=== PATIENT | male | born 1935 | race Caucasian/White ===

== ENCOUNTER 2020-05-03 15:30 | Inpatient (IN) | payer MEDICARE ==
[2020-05-03 16:50] VITALS: BP 173/52; BMI 25.7
--- NOTE | 2020-05-03 17:08 | NUR ---
PT WAS SITTING IN W/C STOOD UP QUICKLY AND STUMBLING FALLING TO THE FLOOR. 2X ASSISTED PT INTO W/C. PT DENIED ANY INJURIES. FALL WAS WITNESSED. CT ORDER AND NEURO CHECKS. SYLVIA QUINONEZ NOTIFIED OF FALL. NOTIFIED LUIS ARITA OF FALL. NOTIFIED COMMUNITY HEALTH NAVIGATOR. CHAIR ALARM IN PLACE AND NOW ACTIVE.
[2020-05-03] MEDS ORDERED: DONEPEZIL HCL5 MG PO (17:32)
[2020-05-03] MEDS ORDERED: LIPITOR10 MG PO (17:43)
[2020-05-03] MEDS ORDERED: GLIPIZIDE10 MG (17:44)
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
--- NOTE | 2020-05-03 19:50 | NUR ---
RECEIVED PATIENT IN DAYROOM. SITTING QUIETLY TO HIMSELF, CONFUSED, FLAT AFFECT. NOT SAYING MUCH WHEN SPOKEN TO. WILL MONITOR PATIENT AND FOLLOW NEW POC
[2020-05-03 20:00] VITALS: BP 119/56
[2020-05-04 08:11] LABS: CHOL - HDL RATIO 2.6 ratio (2.3-4.9); LDL-HDL RATIO 1.3 ratio (1.5-3.5); THYROID STIMULATING HORMONE 2.74 uIU/mL (0.36-3.74)
--- NOTE | 2020-05-04 08:15 | NUR ---
The patient is calm and pleasant he is sitting in the hallway, he is watchful. He remains depressed. He is unhappy about being here. He says he would prefer to just get it all over with. Provide prescribed meds. Monitor compliance with meds. He is in a w/c and self propels, he has an alarm on as he fell yesterday. Continue POC.
[2020-05-04 10:10] VITALS: BP 180/73
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
[2020-05-04 15:06] VITALS: Wt 86.4 kg
[2020-05-04 20:42] VITALS: BP 117/55
--- NOTE | 2020-05-04 20:59 | NUR ---
RECEIVED PATIENT IN DAYROOM, STILL DROWSY, QUIET, FLAT, REMINDING PATIENT TO USE CALL ALARCON FOR ASSISTANCE OF ANY KIND. COMPLIANT WITH MEDS. BED ALARM ON. WILL MONITOR THROUGHOUT SHIFT.
[2020-05-05 09:48] VITALS: BP 129/66
--- NOTE | 2020-05-05 12:46 | NUR ---
PT IS AWAKE AND ALERT TO PERSON ONLY. CALM AND COOPERATIVE WITH ASSESSMENT. PRESCRIBED MEDS PROVIDED. MED COMPLIANT. PT DENIES SI AT THIS TIME. PT IS VERY QUIET AND KEEPS TO HIS SELF. FALL PRECAUTIONS IN PLACE. WILL CPOC.
[2020-05-05 21:08] VITALS: BP 162/53; BP 189/75
--- NOTE | 2020-05-05 22:32 | NUR ---
RECEIVED IN DAYROOM. SITTING IN A WHEELCHAIR WITH PEERS AT HIS SIDE. CALM AND COOPERATIVE WITH CARE AND ASSESSMENT. NO SIGNS OF AGGRESSION. REDIRECT AND REORIENT NEEDED. RESTING IN BED WITH EYES CLOSED AT THIS TIME. CONTINUE PLAN OF CARE.
[2020-05-06 08:37] VITALS: BP 151/52
--- NOTE | 2020-05-06 12:00 | NUR ---
RECEIVED IN HALLWAY OUTSIDE OF NURSES STATION. CALM AND COOPERATIVE WITH CARE AND ASSESSMENT. NO AGGRESSION. REDIRECT AND REORIENT NEEDED. EATING AT THIS TIME. CONTINUE PLAN OF CARE.
[2020-05-06 20:06] VITALS: BP 111/54
--- NOTE | 2020-05-06 21:44 | NUR ---
RECEIVED IN DAYROOM. SITTING IN A WHEELCHAIR WITH PEERS AT HIS SIDE. CALM AND COOPERTIVE WITH CARE AND ASSESSMENT. NO SIGNS OF AGGRESSION. REDIRECT AND REORIENT NEEDED. RESTING IN BED WITH EYES CLOSED AT THIS TIME. CONTINUE PLAN OF CARE.
[2020-05-07 03:07] LABS: RAPID PLASMA REAGIN Non Reactive (Non Reactive)
[2020-05-07 09:05] VITALS: BP 145/52
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
--- NOTE | 2020-05-07 12:00 | NUR ---
RECEIVED IN HALLWAY OUTSIDE OF NURSES STATION. CALM AND COOPERATIVE WITH CARE AND ASSESSMENT. NO AGGRESSIVE BEHAVIOR. BUT WHEN ASKED ABOUT HIS SON, EDIE, HE STATES HE WOULD STILL KILL HIM. REDIRECT AND REORIENT NEEDED. EATING AT THIS TIME. CONTINUE PLAN OF CARE.
--- NOTE | 2020-05-07 13:20 | PN ---
PATIENT:MICHAEL ARITA MEDICAL RECORD: [id number] LOCATION:VICENTE Mccarthy ADMISSION DATE: 05/03/20 PROGRESS NOTE DATE OF SERVICE: 05/06/2020 SUBJECTIVE: The patient's case was discussed with staff. He has no new complaint. OBJECTIVE: The patient is in good behavioral control. He has limited insight about his situation. He has not been aggressive. ASSESSMENT: Dementia. PLAN: Current medicines have been reviewed and will be maintained. Long-term prognosis is guarded. TRANSINT:[id number] Voice Confirmation ID: [id number] DOCUMENT ID: [id number] GEOFF BURNHAM MD at 1320 CC: [id number] DICTATION DATE: 05/06/20 1609 INORGANIC CHEMISTRY PROFESSOR: 05/07/20 0013 ADM IN [id number] [place] [address]
[2020-05-07 19:56] VITALS: BP 198/60
--- NOTE | 2020-05-07 22:13 | NUR ---
REECIVED IN DAYROOM. SITTING IN A WHEELCHAIR WITH PEERS AT HIS SIDE. CALM AND COOPERATIVE WITH CARE AND ASSESSMENT. NO SIGNS OF AGGRESSION. REDIRECT AND REORIENT NEEDED. DOES NOT STAY IN BED. ATTEMPTS TO EXIT WITHOUT ASSIST OFTEN. LIILAN ALARM SOUNDING. IN BED EYES OPEN AT THIS TIME. CONTINUE PLANOF CARE.
--- NOTE | 2020-05-08 02:15 | NUR ---
CONTINUES TO GET OUT OF BED. AGITATED AT STAFF WHEN REDIRECTED AND REORIENTED. CONTINUE TO MONITOR FOR SAFETY.
[2020-05-08 09:57] VITALS: BP 120/60
--- NOTE | 2020-05-08 13:53 | NUR ---
Nutrition Follow-up: Eating well. Diet: ADA/AHA PO intake: 100% x 13 meals Wt: 183# (05/05); 189# (05/03) Last BM: 05/04 Labs noted: Glu 103 Meds noted: Jardiance, Humalog, Glucotrol, vitamin B12 -Monitor wt. -RD following.
--- NOTE | 2020-05-08 14:20 | NUR ---
PT SITTING IN CHAIR AT THIS TIME. PT IS ALERT TO SELF ONLY. CONFUSION NOTED. PT IS CALM AND COOPERATIVE WITH STAFF. PT IS COMPLIANT WITH STAFF, MEDS AND VITALS. PT CAN AMBULATE BUT IS VERY UNSTEADY. STAFF MONITORS AND ASSIST WITH TOILETING. PT CAN MAKE NEEDS KNOWN. CHAIR ALARM IN PLACE AND ACTIVE. NO BEHAVIORS NOTED AT THIS TIME. WILL CONT PLAN OF CARE.
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
[2020-05-08 20:00] VITALS: BP 151/51
--- NOTE | 2020-05-08 22:56 | NUR ---
PATIENT IS ALWAYS AGITATED, COMPLIANT WITH MEDS, CONFUSED, BECOMES ANGRY REALLY QUICKLY. WILL FOLLOW POC
[2020-05-09 10:31] VITALS: BP 134/47
[2020-05-09 10:38] LABS: BASOPHILS 0.5 % (0-2); EOSINOPHILS 1.7 % (0-7); HEMATOCRIT 47.8 % (42.0-54.0); HEMOGLOBIN 16.1 g/dL (13.5-17.5); IMMATURE GRANULOCYTES 0.2 % (0-5); LYMPHOCYTES 24.7 % (15-50); MCH 33.5 pg (26.0-34.0); MCHC 33.7 g/dL (31.0-37.0); MCV 99.4 fL (80.0-100.0); MEAN PLATELET VOLUME 11.5 fL (7.4-10.4); MONOCYTES 9.2 % (2-11); NEUTROPHILS 63.7 % (40-80); PLATELET COUNT 151 10x3/uL (130-400); RBC 4.81 10x6/uL (4.20-6.10); RDW 12.9 % (11.5-14.5); WBC 6.6 10x3/uL (4.8-10.8)
[2020-05-09 10:51] LABS: ALBUMIN 3.5 g/dL (3.4-5.0); ANION GAP 8.6 mmol/L (8-16); BILIRUBIN - TOTAL 0.75 mg/dL (0.2-1.3); CALCIUM 9.2 mg/dL (8.5-10.1); CREATININE - SERUM 1.1 mg/dL (0.6-1.3); POTASSIUM - SERUM 4.6 mmol/L (3.5-5.1); PROTEIN - SERUM 6.2 g/dL (6.4-8.2)
--- NOTE | 2020-05-09 12:17 | PN ---
PATIENT:MICHAEL ARITA MEDICAL RECORD: [id number] LOCATION:VICENTE DamianRigo112 ADMISSION DATE: 05/03/20 PROGRESS NOTE DATE OF SERVICE: 05/08/2020 SUBJECTIVE: The patient's case was discussed with staff. He has no new complaint. OBJECTIVE: The patient denies intent to harm himself or others. He is tolerating his medicines well. ASSESSMENT: Vascular dementia. PLAN: The patient is calm and cooperative, but significantly impaired cognitively. I am going to take him off of the Trilan and we will see if he has a return of the psychotic symptoms he previously had on admission. TRANSINT:[id number] Voice Confirmation ID: [id number] DOCUMENT ID: [id number] GEOFF BURNHAM MD at 1217 CC: [id number] DICTATION DATE: 05/08/20 1553 SOIL ENGINEER: 05/09/20 0046 ADM IN [facility] [address] [place] [address]
--- NOTE | 2020-05-09 15:20 | NUR ---
PT SITTING IN CHAIR WITH EYES OPEN WATCHING T.V. PT IS CALM AND COOPERATIVE WITH STAFF. PT IS COMPLIANT WITH MEDS, VITALS AND ASSESSMENTS. NO ACUTE DISTRESS NOTED. PT CAN AMBULATE AND IS SOMEWHAT UNSTEADY. PT CAN GET SOMEWHAT UPSET WHEN ALARMS GO OFF WHEN STAFF CHECKS ON HIM. PT IS HARD OF HEARING. CHAIR ALARM IN PLACE AND ACTIVE. WILL CONT PLAN OF CARE.
--- NOTE | 2020-05-09 20:00 | NUR ---
RECEIVED PATIENT SITTING IN DAYROOM AT THE TABLE CALMLY, NO AGITATED AT THIS TIME, HE WAS ORIENTED TO SELF AND TIME ONLY. HE HAS BEEN COMPLIANT WITH MEDS. WILL FOLLOW POC
[2020-05-09 20:04] VITALS: BP 166/50
[2020-05-10 09:55] VITALS: BP 144/43
--- NOTE | 2020-05-10 17:17 | NUR ---
PT SITTING IN CHAIR WITH HEAD DOWN. NO ACUTE DISTRESS NOTED. PT CAN BE MILDLY AGITATED WITH CARE. PT IS ALERT TO SELF AND ORIENTED TO SELF ONLY. PT IS COMPLIANT WITH MEDS, VITALS AND ASSESSMENTS. REDIRECT AND REORIENT BEHAVIORS. PT IS UNSTEADY WITH AMBULATION. CHAIR ALARM IN PLACE AND ACTIVE. WILL CONT PLAN OF CARE.
[2020-05-10 20:00] VITALS: BP 149/50
--- NOTE | 2020-05-11 01:42 | NUR ---
B) Patient is alert and oriented to person and place, very [place]; which make it difficult to communicate with him at times, at times this nurse has had to remove his mask and face the patient to be understood. I) Administered scheduled medications as ordered, monitored for safety R) Mediation compliant, follow instructions, P) Continue plan of care.
[2020-05-11 08:24] VITALS: BP 140/51
--- NOTE | 2020-05-11 16:11 | NUR ---
The patient is awake, he is calm, he is confused as he has poor insight into his situation. He wanders around. He has not shown any aggression today and he has not been exit seeking. He has been appropriate with the females and not made any inappropriate remarks or touching. Provide prescribed meds. The patient is compliant with meds. Continue POC.
[2020-05-11 20:02] VITALS: BP 185/63
--- NOTE | 2020-05-11 21:42 | NUR ---
B.) PT IS ALERT AND ORIENTED TO SELF ONLY. HE IS VERY [place]. HE IS USING A WHEELCHAIR TO AMBULATE. HE IS OBSERVED SOCIALIZING WITH PEERS. I.) PROVIDED PM MEDICATIONS PRESCRIBED. REDIRECT OFTEN. R.) COMPLIANT WITH ALL MEDICATIONS. EASY TO REDIRECT. P.) WILL CONTINUE TO MONITOR.
[2020-05-12 13:48] VITALS: BP 160/57
--- NOTE | 2020-05-12 14:53 | NUR ---
ORIENTED TO SELF.COMPLIANT WITH STAFF AND MEDS.NO AGGRESSION OBSERVED.SITS IN WHEELCHAIR AT END OF TABLE MOST OF THE DAY WITH HEAD DOWN ON TABLE.DOES AROUSE EASILY FOR MEDS AND MEALS.WILL CONTINUE WITH CURRENT PLANOF CARE,MONITOR FOR CHANGES AND SAFETY.
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
--- NOTE | 2020-05-12 19:52 | NUR ---
RECEIVED IN DAYROOM. SITTING IN A CHAIR WITH PEERS AT HIS SIDE. CALM AND COOPERATIVE WITH CARE AND ASSESSMENT. NO SIGNS OF AGGRESSION. REDIRECT AND REORIENT NEEDED. CONTINUES TO SIT CALMLY IN DAYROOM. CONTINUE PLAN OF CARE.
[2020-05-12 20:24] VITALS: BP 165/60
[2020-05-13 08:41] VITALS: BP 147/88
--- NOTE | 2020-05-13 13:51 | NUR ---
PT IS AWAKE AND ALERT TO PERSON ONLY. CALM AND COOPERATIVE WITH ASSESSMENT AT THIS TIME. PT HAS LITTLE INSIGHT INTO SITUATION. PRESCRIBED MEDS PROVIDED ORDERED. MED COMPLIANT. REDIRECT AND REORIENT NEEDED. FALL PRECAUTIONS IN PLACE. WILL CPOC.
[2020-05-13 20:10] VITALS: BP 142/33
--- NOTE | 2020-05-13 21:33 | NUR ---
RECEIVED IN DAYROOM. SITTING IN A CHAIR WITH PEERS AT HIS SIDE. JENNYFER ALFARO COOPERATIVE WITH CARE AND ASSESSMENT. NO SIGNS OF AGGRESSION. REDIRECT AND REOREINT NEEDED. RESTING IN BED WITH EYES CLOSED AT THIS TIME. CONTINUE PLAN OF CARE.
[2020-05-14 11:40] VITALS: BP 128/52
--- NOTE | 2020-05-14 11:58 | NUR ---
RECEIVED IN HALLWAY OUTSIDE OF NURSES STATION. CALM AND COOPERATIVE WITH CARE AND ASSESSMENT. NO AGGRESSION. DENIES SUICIDAL IDEATION. REDIRECT AND REORIENT NEEDED. EATING AT THIS TIME. CONTINUE PLAN OF CARE.
[2020-05-14 20:16] LABS: GLUCOSE 1000 mg/dL (NEGATIVE); KETONE NEGATIVE (NEGATIVE); NITRITE NEGATIVE (NEGATIVE); UROBILINOGEN NORMAL (NORMAL)
[2020-05-14 20:17] LABS: BILIRUBIN NEGATIVE (NEGATIVE)
[2020-05-14 20:53] VITALS: BP 127/52
--- NOTE | 2020-05-14 22:17 | NUR ---
RECEIVED IN DAYROOM. SITTING IN A CHAIR WITH PEERS AT HIS SIDE. CALM AND COOPERATIVE WITH CARE AND ASSESSMENT. NO SIGNS OF AGGRESSION. REDIRECT AND REOREINT NEEDED. RESTING IN BED WITH EYES CL0SED AT THIS TIME. CONTINUE PLAN OF CARE.
[2020-05-15 09:19] VITALS: BP 129/58
--- NOTE | 2020-05-15 14:03 | NUR ---
Nutrition Follow-up: Diet: Cardiac, Diabetic PO intake: 100% x all meals Last BM: 05/11/20. WT: 184.4# (05/12/20); Admit WT: 189# (05/03/20) Meds noted: miralax, SSI, glipizide. Labs noted: POC Glu 77(WNL) Recommend continue current diet. RD following.
--- NOTE | 2020-05-15 14:43 | NUR ---
PT CALM AND COOPERATIVE WITH ASSESSMENT. PT APPEARS SLEEPY THIS MORNING. NO BEHAVIORS NOTED AT THIS TIME. REDIRECT AND REORIENT NEEDED. PRESCRIBED MEDS PROVIDED ORDERED. MED COMPLIANT. FALL PRECAUTIONS IN PLACE. WILL CPOC.
[2020-05-15 20:03] VITALS: BP 145/44
--- NOTE | 2020-05-16 00:25 | NUR ---
B.) PT IS ALERT AND ORIENTED TO SELF ONLY. HE IS ABLE TO AMBULATE BUT IS VERY UNSTEADY. HE IS HARD OF HEARING. HE IS CALM AND COOPERATIVE WITH STAFF. HE IS TIRED TODAY. I.) PROVIDED PM MEDICATIONS PRESCRIBED. REDIRECT OFTEN. R.) COMPLIANT WITH ALL MEDICATIONS. EASY TO REDIRECT. P.) WILL CONTINUE TO MONITOR.
[2020-05-16 09:36] VITALS: BP 111/43
--- NOTE | 2020-05-16 14:33 | NUR ---
PT SITTING IN W/C PROPELLS SELF IN CHAIR. PT IS CONFUSED AND FORGETFUL. STAFF OFTEN HAS TO REMIND HIM TO USE HIS W/C TO PREVENT FALLS. PT IS TENDS TO ISOLATE SELF WITH HEAD ON TABLE. PT CAN BE SNIPPY AT TIMES. REDIRECT BEHAVIORS NEEDED. PT IS COMPLIANT WITH MEDS, VITALS AND ASSESSMENTS. NO BEHAVIORS NOTED PREVIOUS SHIFT. CAN MAKE NEEDS KNOWN. CHAIR ALARM IN PLACE AND ACTIVE. WILL CONT PLAN OF CARE.
[2020-05-16 20:19] VITALS: BP 120/45
--- NOTE | 2020-05-16 22:26 | NUR ---
RECEIVED PATIENT IN DAYROOM, SITTING AT THE END OF THE TABLE WITH HIS HEAD ON THE TABLE, HE IS USUALLY IN A BAD MOOD, DOESN'T LIKE FOR PEOPLE TO TALK TO HIM, AND THIS IS HIS MOOD THIS EVENING. HE IS CONFUSED, HE IS COMPLIANT WITH MEDS. WILL FOLLOW POC
[2020-05-17 14:10] VITALS: BP 125/41
--- NOTE | 2020-05-17 14:20 | NUR ---
PT SITTING IN W/C WITH HEAD DOWN. PT DOES NOT LIKE TO INTERACT WITH STAFF DURING GROUPS. PT IS COOPERATIVE WITH STAFF AND PEERS. PT CAN AMBULATE BUT IS VERY UNSTEADY. PT IN W/C WITH CHAIR ALARM IN PLACE. PT IS COMPLIANT WITH MEDS, VITALS AND ASSESSMENTS. CONFUSION NOTED. PT CAN BE GRUMPY WHEN STAFF ATTEMPTS TO GIVE CARE. REDIRECT BEHAVIOR. CHAIR ALARM IN PLACE AND ACTIVE. WILL CONT PLAN OF CARE.
[2020-05-17 20:08] VITALS: BP 145/79
--- NOTE | 2020-05-18 04:17 | NUR ---
RECEIVED IN DAYROOM WITH HIS HEAD ON TABLE. CALM AND COOPERATIVE WITH CARE AND ASSESSMENT. REDIRECT AND REORIENT NEEDED. MEDICATION COMPLIANT. CONTINUE PLAN OF CARE.
[2020-05-18 09:54] VITALS: BP 107/43
--- NOTE | 2020-05-18 10:18 | NUR ---
The patient is quiet and calm, he wakes up to eat, drink, and toilet. He is depressed. He just lays his head down on the table all day long. he doesn't interact with staff or peers. Provide prescribed meds. The patient is compliant with meds. He can self propel in a w/c and he can walk with assist as he is unsteady. He has not shown any aggression this am. Continue to monitor his behavior and POC.
[2020-05-18 11:55] LABS: HEMATOCRIT 45.5 % (42.0-54.0); HEMOGLOBIN 15.4 g/dL (13.5-17.5); MCH 32.8 pg (26.0-34.0); MCHC 33.8 g/dL (31.0-37.0); MCV 96.8 fL (80.0-100.0); NEUTROPHILS 65.2 % (40-80); PLATELET COUNT 141 10x3/uL (130-400); RDW 12.8 % (11.5-14.5)
[2020-05-18 12:27] LABS: ALBUMIN 3.2 g/dL (3.4-5.0); ANION GAP 8.6 mmol/L (8-16); BILIRUBIN - TOTAL 0.47 mg/dL (0.2-1.3); CARBON DIOXIDE 30.2 mmol/L (21.0-32.0); CREATININE - SERUM 1.3 mg/dL (0.6-1.3); POTASSIUM - SERUM 4.8 mmol/L (3.5-5.1); PROTEIN - SERUM 6.2 g/dL (6.4-8.2)
[2020-05-18 20:00] VITALS: BP 142/88
--- NOTE | 2020-05-19 08:45 | NUR ---
REC'D PT IN DINING ROOM WITH PEERS. CALM AND COOPERATIVE WITH ASSESSMENT. PT IS CALM AND SLEEPY AT TIMES. PT APPEARS TO BE DEPRESSED AT THIS TIME. PRECRIBED MEDS PROVIDED ORDERED. MED COMPLIANT. REDIRECT AND REORIENT NEEDED. WILL CPOC.
[2020-05-19 09:18] VITALS: BP 113/44
[2020-05-19 20:06] VITALS: BP 118/44
--- NOTE | 2020-05-20 12:00 | NUR ---
RECEIVED IN HALLWAY OUTSIDE OF NURSES STATION. CALM AND COOPERATIVE WITH CARE AND ASSESSMENT. NO BEHAVIORS NOTED. REDIRECT AND REORIENT NEEDED. EATING AT THIS TIME. CONTINUE PLAN OF CARE.
--- NOTE | 2020-05-20 14:27 | NUR ---
SW SPOKE TO PT'S SUNITHA TO TALK ABOUT DISCHARGE PLANS. SW STATED SHE SENT REFERRAL TO [facility] AND [facility]. PT HAS BEEN DENIED BY BOTH. PT'S SUNITHA ASKED TO DO A REFERRAL TO [facility] IN [facility] AND PUT REFERRALS OUT IN [facility]OO. PAPA EXPLAINED THE PROCESS. SUNITHA VOICED UNDERSTANDING.
[2020-05-20 19:51] VITALS: BP 150/46
--- NOTE | 2020-05-20 20:26 | NUR ---
RECEIVED IN DAYROOM. SITTING IN DAYROOM WITH PEERS AT HIS SIDE. CALM AND COOPERATIVE WITH CARE AND ASSESSMENT. NO SIGNS OF AGGRESSION. REDIRECT AND REORIENT NEEDED. CONTINUES TO SIT CALMLY IN DAYROOM. CONTINUE PLAN OF CARE.
[2020-05-21 10:00] VITALS: BP 132/39
--- NOTE | 2020-05-21 13:08 | NUR ---
PT IS SITTING WITH HEAD DOWN ON DINING ROOM TABLE AT THIS TIME. CALM AND COOPERATIVE WITH ASSESSMENT. PRESCRIBED MEDS PROVIDED ORDERED. MED COMPLIANT. PT APPEARS DEPRESSED AT THIS TIME. PT HAS FLAT AFFECT THIS MORNING. REDIRECT AND REORIENT NEEDED. PT REPORTS " WHEN I THINK ABOUT MY SON, IT MAKES ME SAD." PT CRYING AT THIS TIME TALKING WITH ACCOUNT MANAGEMENT ASSISTANT. WILL CPOC.
--- NOTE | 2020-05-21 15:08 | PN ---
PATIENT:MICHAEL ARITA MEDICAL RECORD: [id number] LOCATION:[facility] ADMISSION DATE: 05/03/20 PROGRESS NOTE DATE OF SERVICE: 05/20/2020 SUBJECTIVE: The patient's case was discussed with staff. He has no new complaint. OBJECTIVE: The patient is impaired cognitively and only partially oriented. He has poor insight about his situation. He is eating and sleeping well. ASSESSMENT: Vascular dementia. PLAN: The patient will be maintained on current medications. His long-term prognosis is guarded. Supportive and educational interventions were made. I anticipate he can be transitioned out of the hospital soon if this level of improvement continues. TRANSINT:[id number] Voice Confirmation ID: [id number] DOCUMENT ID: [id number] GEOFF BURNHAM MD at 1508 CC: [id number] DICTATION DATE: 05/20/20 1514 POLICE SPECIALIST: 05/20/20 2326 ADM IN [place] [id number] [place] [address]
[2020-05-21 20:11] VITALS: BP 156/45
[2020-05-22 10:26] VITALS: BP 114/38
--- NOTE | 2020-05-22 11:10 | NUR ---
Nutrition Follow-up: Diet: Cardiac/Diabetic PO intake: 100% x all Last BM: last recorded 05/11/20 x 11 days now Wt: 185.2# (05/19/20); Admit WT: 189# (05/03/20) Meds noted: glipizide, jardiance, miralax, SSI. Labs noted: Glu 116(H) Recommend continue current diet. RD following.
--- NOTE | 2020-05-22 11:35 | NUR ---
The patient has been grumpy this am with the MHT's during v/s. At this time he has his head on the table. He does not awaken for groups or activities. He wakes up for medication and meals. He can ambulate, but he is unsteady. Provide prescribed meds. The patient is compliant with meds. Continue POC.
--- NOTE | 2020-05-22 16:23 | PN ---
PATIENT:MICHAEL ARITA MEDICAL RECORD: [id number] LOCATION:[facility] ADMISSION DATE: 05/03/20 PROGRESS NOTE DATE OF SERVICE: 05/21/2020 SUBJECTIVE: The patient's case was discussed with staff. He has no new complaint. OBJECTIVE: The patient is in good behavioral control. He has poor insight about his situation. He is tolerating his medicines well. ASSESSMENT: Vascular dementia. PLAN: The patient has been denied by 3 different nursing homes. Once one will accept him, he can be discharged. TRANSINT:[id number] Voice Confirmation ID: [id number] DOCUMENT ID: [id number] GEOFF BURNHAM MD at 1623 CC: [id number] DICTATION DATE: 05/21/20 1523 DEVICE PROCESSING ENGINEER: 05/21/20 2132 ADM IN [facility] [address] [place] [address]
[2020-05-22 20:00] VITALS: BP 154/43
--- NOTE | 2020-05-22 20:44 | NUR ---
RECEIVED IN DAYROOM. SITTING QUIETLY TO HIMSELF. CALM AND COOPERATIVE WITH CARE AND ASSESSMENT. NO AGGRESSIVE BEHAVIORS. REDIRECT AND REORIENT NEEDED. SITTING IN GROUP AT THIS TIME. CONTINUE PLAN OF CARE.
[2020-05-23 10:23] VITALS: BP 124/68
--- NOTE | 2020-05-23 13:18 | NUR ---
KEEPS TO SELF.COMPLIANT WITH MEDS BUT WAS VERBALLY SHORT TEMPERED WITH STAFF THIS AM.KEEPS HEAD DOWN ON TABLE EXCEPT FOR MEALS AND WHEN TAKING MEDS.IS AMBULATORY.WILL CONTINUE WITH CURRENT PLAN OF CARE.
--- NOTE | 2020-05-23 16:51 | PN ---
PATIENT:MICHAEL ARITA MEDICAL RECORD: [id number] LOCATION:[facility] [address] ADMISSION DATE: 05/03/20 PROGRESS NOTE DATE OF SERVICE: 05/22/2020 SUBJECTIVE: The patient's case was discussed with staff. He has no new complaint. OBJECTIVE: The patient is eating and sleeping well. He has not been aggressive. He is appropriate for discharge, but I cannot find a facility that will accept him. The problem is related to the COVID infection and nursing homes that are appropriate for him not taking new patients at this time. TRANSINT:[id number] Voice Confirmation ID: [id number] DOCUMENT ID: [id number] GEOFF BURNHAM MD at 1651 CC: [id number] DICTATION DATE: 05/22/20 170 KILN LOADER: 05/22/201958 ADM IN [address] [place] [address]
[2020-05-23 19:36] VITALS: BP 133/42
--- NOTE | 2020-05-24 01:36 | NUR ---
B) Patient is alert and oriented to person, very [place], difficult to communicate with, follows instructions, I) Administered scheduled medications as ordered, monitored for safety R) Medication compliant, naps frequently and sleeps all night P) Continue plan of care.
[2020-05-24 09:41] VITALS: BP 116/40
--- NOTE | 2020-05-24 11:10 | NUR ---
The patient is awake only for meals and meds. He lays his head down on the table and does not participate in groups he sits with them, but he has no interactions. He ambulates, but he is unsteady. Provide prescribed meds. The patient is compliant with meds. He has poor insight into his situation. He is [place]. He has not shown any aggression today. Continue POC.
--- NOTE | 2020-05-24 13:12 | PN ---
PATIENT:MICHAEL ARITA MEDICAL RECORD: [id number] LOCATION:[facility] ADMISSION DATE: 05/03/20 PROGRESS NOTE DATE OF SERVICE: 05/23/2020 SUBJECTIVE: The patient's case was discussed with staff. He has no new complaint. OBJECTIVE: The patient is in good behavioral control, has poor insight about his situation. He is partially oriented. He has not been aggressive. ASSESSMENT: Vascular dementia. PLAN: The patient has been declined by multiple nursing homes. The primary issue is related to the COVID pandemic. I believe he can be transitioned out of the hospital safely and once arrangements are made, I will transition him out of the hospital. TRANSINT:[id number] Voice Confirmation ID: [id number] DOCUMENT ID: [id number] GEOFF BURNHAM MD at 1312 CC: [id number] DICTATION DATE: 05/23/201758 QUOTATION CHECKER: 05/23/202056 ADM IN [place] [id number] [place] [address]
[2020-05-24 20:00] VITALS: BP 130/39
--- NOTE | 2020-05-24 20:55 | NUR ---
B) Patient is alert at time, naps frequently, little to no interaction with others, I) Administered scheduled medications as ordered, monitored for safety R) Medication compliant, quiet P) Continue plan of care.
--- NOTE | 2020-05-25 08:13 | NUR ---
The patient is awake and alert, he ambulates independently. He is praying with another male patient and they are interacting in a positive manner. He eats and he takes his medication. He has poor insight into his situation. He puts his head down on the table and sleeps. Provide prescribed meds. The patient is compliant with meds. He has not shown any aggression today. Continue POC.
[2020-05-25 09:51] VITALS: BP 143/68
[2020-05-25 20:00] VITALS: BP 143/41
--- NOTE | 2020-05-25 22:37 | NUR ---
B.) PT IS ALERT AND ORIENTED TO SELF AND SITUATION. HE IS TEARFUL ON THE PHONE WHEN SPEAKING TO FAMILY MEMBERS. HE RELATES THAT HE JUST WANTS TO GO HOME. HE IS COOPERATIVE WITH STAFF. HE IS ABLE TO AMBULATE ON HIS OWN WITHOUT ASSIST. HE IS VERY [place]. I.) PROVIDED PM MEDICATIONS PRESCRIBED. REDIRECT NEEDED. R.) COMPLIANT WITH ALL MEDICATIONS. EASY TO REDIRECT. P.) WILL CONTINUE TO MONITOR.
[2020-05-26 08:44] VITALS: BP 111/37
--- NOTE | 2020-05-26 09:52 | NUR ---
The patient interacts with some of his peers and he will awaken to eat, and take his medications. He is calm, he has not shown any aggression today. He prefers to keep his head on the table and rest. He says he isn't sleeping he knows what is going on. He ambulates indepedently. Provide prescribed. The patient is compliant with meds. Continue POC.
[2020-05-26 19:19] VITALS: BP 174/56
--- NOTE | 2020-05-26 20:00 | NUR ---
RECEIVED IN DAYROOM. SITTING AT THE TABLE WITH PEERS AT HIS SIDE. SOCIAL AT TIMES. CALM AND COOPERATIVE WITH CARE AND ASSESSMENT. NO SIGNS OF AGGRESSION. REDIRECT AND REOREINT NEEDED. SITTING CALMLY WITH PEERS IN DINING AREA AT THIS TIME. CONTINUE PLAN OF CARE.
--- NOTE | 2020-05-27 07:30 | NUR ---
PT IS AWAKE AND ALERT TO PERSON ONLY. CALM AND COOPERATIVE WITH ASSESSMENT. PT MOOD IS PLEASANT AT THIS TIME. PRESCRIBED MEDS PROVIDED ORDERED. MED COMPLIANT. REDIRECT AND REORIENT NEEDED. NO BEHAVIORS NOTED AT THIS TIME. FALL PRECAUTIONS IN PLACE. WILL CPOC.
[2020-05-27 08:46] VITALS: BP 120/50
--- NOTE | 2020-05-27 19:55 | NUR ---
RECEIVED IN DAYROOM. SITTING IN A CHAIR WITH PEERS AT HIS SIDE. CALM AND COOPERATIVE WITH CARE AND ASSESSMENT. NO SIGNS OF AGGRESSION OR PARANOIA. REDIRECT AND REORIENT NEEDED. CONTINUES TO SIT CALMLY IN DAYROOM. CONTINUE PLAN OF CARE.
[2020-05-27 20:18] VITALS: BP 153/52
[2020-05-28 09:43] VITALS: BP 154/51
--- NOTE | 2020-05-28 10:31 | NUR ---
PT IS SITTING IN DAYRROM WITH PEERS. CALM AND COOPERATIVE WITH ASSESSMENT AT THIS TIME. PRESCRIBED MEDS PROVIDED ORDERED. MED COMPLIANT. NO BEHAVIORS NOTED. FALL PRECAUTIONS IN PLACE. WILL CPOC.
--- NOTE | 2020-05-28 10:50 | NUR ---
PAPA SPOKE WITH PT'S SON, LUIS, TO DISCUSS DISCHARGE PLANNING NEEDS. PAPA STATED PT WAS ACCEPTED TO [facility] HALF-WAY IN BUT THEY NEED TO QUARANTINE HIM FOR 14 DAYS AT [facility]. PAPA EXPLAINED OTHER HALF-WAY DENIED HIM AT THIS TIME DUE TO THE REASON FOR HIS ADMISSION AND COVID PRECAUTIONS. IF PT HAS GOOD BEHAVIOR IN BEHAVIORAL HALF-WAY THEY SHOULD BE ABLE TO TRANSFER TO [facility]ARE UNIT IN A REGULAR HALF-WAY SETTING ONCE COVID PRECAUTIONS LIFT.
--- NOTE | 2020-05-28 16:37 | PN ---
PATIENT:MICHAEL ARITA MEDICAL RECORD: [id number] LOCATION:[facility] Pang112 ADMISSION DATE: 05/03/20 PROGRESS NOTE DATE OF SERVICE: 05/27/2020 SUBJECTIVE: The patient's case was discussed with staff. He has no new complaint. OBJECTIVE: The patient is sleeping well and eating well. He has not been aggressive. ASSESSMENT: Dementia. PLAN: I have reviewed the patient's current medications and will maintain them. I think he is appropriate for discharge as soon as placement can be arranged. The difficulties with discharge have been outlined in the record. TRANSINT:[id number] Voice Confirmation ID: [id number] DOCUMENT ID: [id number] GEOFF BURNHAM MD at 1637 CC: [id number] DICTATION DATE: 05/27/20 174 ASSEMBLER GARMENT FORM: 05/27/20 211 ADM IN [place] [id number] [place] [id number]
[2020-05-28 20:01] VITALS: BP 155/47
--- NOTE | 2020-05-29 02:46 | NUR ---
B) Patient is alert and oriented to person and place, calm and cooperative. naps frequently, I) Administered scheduled medications as ordered, monitored for behaviors, R) Mediation compliant, no aggression noted, P) Continue plan of care.
[2020-05-29 07:52] VITALS: BP 134/47
--- NOTE | 2020-05-29 10:16 | NUR ---
The patient is awake before breakfast and he eats breakfast and takes his meds and then after he gets sleepy. He is ambulating independently, but he is unsteady at times. He has not made any aggressive remarks or shown any aggression. He is [place]. Provide prescribed meds. The patient is compliant with meds. Continue POC.
--- NOTE | 2020-05-29 11:02 | NUR ---
Nutrition Follow-up: Diet: Diabetic/Cardiac PO intake: 100% x all Last BM: 05/29/20. WT: 190# (05/26/20); Admit Wt: 189# (05/03/20) Meds noted: glipizide, miralax, jardiance, SSI. Labs noted: POC Glu 106(WNL) Recommend continue current diet. RD following.
--- NOTE | 2020-05-29 12:43 | PN ---
PATIENT:MICHAEL ARITA MEDICAL RECORD: [id number] LOCATION:[facility] ADMISSION DATE: 05/03/20 PROGRESS NOTE DATE OF SERVICE: 05/28/2020 SUBJECTIVE: The patient's case was discussed with staff. He has no new complaint. OBJECTIVE: The patient is in good behavioral control. He has poor insight about his situation. He is tolerating his medicines well. He is significantly and seriously cognitively impaired and does require 21-gnyq-a-day supervision. He has not been disruptive to any appreciable degree for some time now. ASSESSMENT: Vascular dementia. PLAN: The patient is in need of custodial placement. He has been difficult to place because of his behaviors on admission and because of the pandemic, many nursing homes are not accepting patients with dementia diagnoses because they cannot stay in a room. TRANSINT:[id number] Voice Confirmation ID: [id number] DOCUMENT ID: [id number] GEOFF BURNHAM MD at 1243 CC: [id number] DICTATION DATE: 05/28/20 1640 SHIPPER RECEIVER: 05/28/20 2337 ADM IN [facility] [address] [place] [address]
[2020-05-29 20:33] VITALS: BP 141/40
--- NOTE | 2020-05-29 21:55 | NUR ---
B.) PT IS ALERT AND ORIENTED TO SELF AND SITUATION. HE IS CALM AND COOPERATIVE WITH STAFF. HE IS ABLE TO MAKE HIS NEEDS KNOWN AND AMBULATE ON HIS OWN WITHOUT ASSIST. HE IS IN A GOOD MOOD HE IS OBSERVED SOCIALIZING WITH ANOTHER PT. I.) PROVIDED PM MEDICATIONS PRESCRIBED. REDIRECT NEEDED. R.) COMPLIANT WITH ALL MEDICATIONS. EASY TO REDIRECT. P.) WILL CONTINUE TO MONITOR.
[2020-05-30 08:42] VITALS: BP 149/53
--- NOTE | 2020-05-30 11:00 | NUR ---
The patient is awake to eat breakfast and take his medications. He stays awake when another male patient talks with him he enjoys the company, they talk about getting a house together and being room mates. He has poor insight into his situation. He ambulates independently. Provide prescribed medications. The patient is compliant with meds. Continue POC.
--- NOTE | 2020-05-30 13:32 | PN ---
PATIENT:MICHAEL ARITA MEDICAL RECORD: [id number] LOCATION:[facility] ADMISSION DATE: 05/03/20 PROGRESS NOTE DATE OF SERVICE: 05/29/2020 SUBJECTIVE: The patient's case was discussed with staff. He has no new complaint. OBJECTIVE: The patient is in good behavioral control. He is tolerating his medicines well. He is impaired cognitively, but not disruptive in any significant way. ASSESSMENT: Vascular dementia. PLAN: The patient can be transitioned out of the hospital as soon as placement is arranged. TRANSINT:[id number] Voice Confirmation ID: [id number] DOCUMENT ID: [id number] GEOFF BURNHAM MD at 1332 CC: [id number] DICTATION DATE: 05/29/20 1315 ERP SPECIALIST: 05/29/20 2239 ADM IN [place] [address] [place] [address]
[2020-05-30 20:06] VITALS: BP 189/58
--- NOTE | 2020-05-31 01:21 | NUR ---
B) Patient is alert and oriented to person, quiet and withdrawn, napping frequently I) Administered scheduled medications as ordered,monitored for safety R) Mediation compliant, sleeping now, up several times to bathroom, P) Continue plan of care.
--- NOTE | 2020-05-31 07:27 | NUR ---
The patient is awake and he is pleasant he is calm, he is polite as he has greeted other patients. He knows his name, he has poor insight into his situation. He ambulates independently. He has not shown any aggression today, he has not made any inappropriate comments about aggression. Provide prescribed meds. The patient is compliant with meds. Monitor his mood and his behavior. Continue POC.
[2020-05-31 09:10] VITALS: BP 164/52
--- NOTE | 2020-05-31 12:43 | PN ---
PATIENT:MICHAEL ARITA MEDICAL RECORD: [id number] LOCATION:[facility]ENTE [address]112 ADMISSION DATE: 05/03/20 PROGRESS NOTE DATE OF SERVICE: 05/30/2020 SUBJECTIVE: The patient's case was discussed with staff. He has no new complaint. OBJECTIVE: The patient is cognitively impaired, but not disruptive in any appreciable way. He is participating in treatment. ASSESSMENT: Vascular dementia. PLAN: The patient will be transitioned out of the hospital as soon as placement can be arranged. The problems associated with that are documented. Hopefully, he can be discharged soon. TRANSINT:[id number] Voice Confirmation ID: [id number] DOCUMENT ID: [id number] GEOFF BURNHAM MD at 1243 CC: [id number] DICTATION DATE: 05/30/20 1357 COMMUNITY HEALTH NAVIGATOR: 05/30/20 1715 ADM IN [facility] [address] [place] [id number]
[2020-05-31 20:10] VITALS: BP 147/46
--- NOTE | 2020-06-01 02:13 | NUR ---
B) RECEIVED IN DAYROOM, ALERT TO PERSON ONLY, SOCIALIZING WITH PEERS. NO AGGRESSIVE BEHAVIOR. I) ADMINISTERED PRESCRIBED MEDICATIONS. REDIRECT AND REORIENT NEEDED. R) MEDICATION COMPLIANT. MONITOR FOR SAFETY AND BEHAVIORS. P) CONTINUE POC.
[2020-06-01 09:30] VITALS: BP 130/46
--- NOTE | 2020-06-01 10:54 | NUR ---
RECEIVED SITTING UP IN CHAIR THIS AM.IS COMPLIANT WITH STAFF AND MEDS.QUITE,KEEPS TO SELF.NO AGGRESSION OBSERVED.WILL CONTINUE WITH CURRENT PLAN OF CARE,MONITOR FOR SAFETY AND CHANGES.
[2020-06-01 19:16] VITALS: BP 169/43
--- NOTE | 2020-06-01 21:04 | NUR ---
B.) PT IS ALERT AND ORIENTED TO SELF AND AT TIMES SITUATION. HE IS CALM AND COOPERATIVE WITH STAFF. HE IS OBSERVED SOCIALIZING WITH ANOTHER PATIENT. HE IS VERY [place] OF HEAR[place]. HE IS PLEASANT AND ABLE TO MAKE NEEDS KNOWN. I.) PROVIDED PM MEDICATIONS PRESCRIBED. REDIRECT NEEDED. R.) COMPLIANT WITH ALL MEDICATIONS. EASY TO REDIRECT. P.) WILL CONTINUE TO MONITOR.
--- NOTE | 2020-06-02 07:45 | NUR ---
REC'D PT IN HALLWAY BY NURSES STATION WITH PEERS. AWAKE AND ALERT TO SELF. CALM AND COOPERATIVE WITH ASSESSMENT. PRESCRIBED MEDS PROVIDED ORDERED. MED COMPLIANT. NO BEHAVIORS NOTED. WILL CPOC.
[2020-06-02 09:47] VITALS: BP 124/60
--- NOTE | 2020-06-02 20:12 | NUR ---
RECEIVED IN DAYROOM. SITTING CALMLY IN DAYROOM. CALM AND COOPERATIVE WITH CARE AND ASSESSMENT. NO SIGNS OF AGGRESSION. REDIRECT AND REOREINT NEEDED. CONTINUES TO SIT CALMLY IN DAYROOM. CONTINUE PLAN OF CARE.
[2020-06-02 20:14] VITALS: BP 155/41
[2020-06-03 09:19] VITALS: BP 136/46
--- NOTE | 2020-06-03 12:00 | NUR ---
RECEIVED IN HALLWAY OUTSIDE OF NURSES STATION. CALM AND COOPERATIVE WITH CARE AND ASSESSMENT. NO BEHAVIORS. REDIRECT AND REORIENT NEEDED. EATING AT THIS TIME. CONTINUE PLAN OF CARE.
[2020-06-03 20:28] VITALS: BP 147/38
--- NOTE | 2020-06-03 22:36 | NUR ---
RECEIVED IN DAYROOM. SITTING IN A CHAIR WITH PEERS AT HIS SIDE. CALM AND COOPERATIVE WITH CARE AND ASSESSMENT. NO SIGNS OF AGGRESSION. REDIRECT AND REORIENT NEEDED. RESTING IN BED WITH EYES CLOSED AT THIS TIME. CONTINUE PLAN OF CARE.
--- NOTE | 2020-06-04 10:02 | PN ---
PATIENT:MICHAEL ARITA MEDICAL RECORD: [id number] LOCATION:[facility] ADMISSION DATE: 05/03/20 PROGRESS NOTE DATE OF SERVICE: 06/03/2020 SUBJECTIVE: The patient's case was discussed with staff. He has no new complaint. OBJECTIVE: The patient is in good behavioral control. He has poor insight about his situation. He is tolerating his medicines well. ASSESSMENT: Vascular dementia. PLAN: The patient will be transitioned out of the hospital as soon as jail placement can be arranged. He has very limited insight about his situation. He is not aggressive or disruptive and has not been for a long time. The problem is simply a matter of placing him and the complications are primarily associated with the Covid infection and the fact that he was so intensely violent when he was first admitted. TRANSINT:[id number] Voice Confirmation ID: [id number] DOCUMENT ID: [id number] GEOFF BURNHAM MD at 1002 CC: [id number] DICTATION DATE: 06/03/20 1648 IMPORT/EXPORT SPECIALIST: 06/04/20 0014 ADM IN [facility] [address] [place] [address]
[2020-06-04 10:17] VITALS: BP 131/84
--- NOTE | 2020-06-04 12:00 | NUR ---
RECEIVED IN HALLWAY OUTSIDE OF NURSES STATION. CALM AND COOPERATIVE WITH CARE AND ASSESSMENT. NO AGGRESSIVE BEHAVIOR. REDIRECT AND REORIENT NEEDED. EATING AT THIS TIME. CONTINUE PLAN OF CARE.
[2020-06-04 16:31] LABS: BASOPHILS 0.3 % (0-2); EOSINOPHILS 1.3 % (0-7); HEMATOCRIT 44.3 % (42.0-54.0); HEMOGLOBIN 14.5 g/dL (13.5-17.5); IMMATURE GRANULOCYTES 0.3 % (0-5); MCH 32.6 pg (26.0-34.0); MCHC 32.7 g/dL (31.0-37.0); MCV 99.6 fL (80.0-100.0); MEAN PLATELET VOLUME 11.1 fL (7.4-10.4); MONOCYTES 10.7 % (2-11); NEUTROPHILS 65.4 % (40-80); PLATELET COUNT 142 10x3/uL (130-400); RBC 4.45 10x6/uL (4.20-6.10); WBC 7.5 10x3/uL (4.8-10.8)
[2020-06-04 16:42] LABS: ANION GAP 10.8 mmol/L (8-16); CALCIUM 8.9 mg/dL (8.5-10.1); CARBON DIOXIDE 28.2 mmol/L (21.0-32.0); CREATININE - SERUM 1.3 mg/dL (0.6-1.3)
[2020-06-04 20:53] VITALS: BP 159/48
--- NOTE | 2020-06-04 21:58 | NUR ---
RECEIVED IN DAYROOM. SITTING IN DAYROOM WITH PEERS AT HER SIDE. CALM AND COOPERATIVE WITH CARE AND ASSESSMENT. NO SIGNS OF AGGRESSION. REDIRECT AND REOREINT NEEDED. CONTINUES TO SIT CALMLY IN DAYROOM. CONTINUE PLAN OF CARE.
--- NOTE | 2020-06-05 11:04 | NUR ---
pt sitting down at this time with head down. pt is friendly with staff and peers. pt is calm and cooperative with staff. pt is alert to self only with confusion noted. pt can make needs and assist with adls as needed. pt ambulates with no assistance. pt is compliant with meds, vitals and assessments. no behaviors noted. will cont plan of care.
--- NOTE | 2020-06-05 13:27 | PN ---
PATIENT:MICHAEL ARITA MEDICAL RECORD: [id number] LOCATION:[facility]ENT[facility] Mccarthy ADMISSION DATE: 05/03/20 PROGRESS NOTE DATE OF SERVICE: 06/04/2020 SUBJECTIVE: The patient's case was discussed with staff. He has no new complaint. OBJECTIVE: The patient is in good behavioral control with poor insight about his situation. He is tolerating his medicines well and has no disruptive behaviors. ASSESSMENT: Vascular dementia. PLAN: The patient is ready for discharge, but for reasons already explained. There is no placement for him. He can be discharged as soon as placement is arranged. TRANSINT:[id number] Voice Confirmation ID: [id number] DOCUMENT ID: [id number] GEOFF BURNHAM MD at 1327 CC: [id number] DICTATION DATE: 06/04/20 1601 HELP DESK ASSISTANT: 06/04/20 2322 ADM IN [place] [id number] [place] [address]
--- NOTE | 2020-06-05 13:41 | NUR ---
Nutrition Follow-up: Diet: Cardiac/Diabetic PO intake: 100% x all Last BM: 06/01/20. Wt: 190.2# (06/02/20); Admit Wt: 189# (05/03/20) Meds noted: glipizide, miralax, Jardiance, SSI Labs noted: Glu 223(H), POC Glu 113(H) Recommend continue current diet. RD following.
[2020-06-05 14:18] VITALS: BP 130/52
[2020-06-05 20:00] VITALS: BP 157/45
--- NOTE | 2020-06-05 23:00 | NUR ---
RECEIVED IN DAYROOM WATCHING TV. CALM AND COOPERATIVE WITH STAFF AND ASSESSMENT. CONFUSION NOTED BUT NO AGGRESION. REDIRECT AND REORIENT NEEDED. AT BEDTIME PATIENT SAID HE WAS HUNGRY, BUT DOESN'T REMEMBER EATING HIS SUPPER. A SANDWICH TRAY WAS SERVED AND ENJOYED. CONTINUE PLAN OF CARE.
[2020-06-06 09:40] VITALS: BP 127/42
--- NOTE | 2020-06-06 10:25 | NUR ---
PT SITTING AT TABLE WITH HEAD DOWN AT THIS TIME. PT IS CALM AND COOPERATIVE WITH STAFF. CONFUSION NOTED. PT ORIENTED TO PERSON AND PLACE AT TIMES. REDIRECT AND REORIENT NEEDED. NO AGRESSION NOTED. FALSE PASS. PT CAN MAKE NEEDS KNOWN. NO BEHAVIORS NOTED. WILL CONT PLAN OF CARE.
--- NOTE | 2020-06-06 14:39 | PN ---
PATIENT:MICHAEL ARITA MEDICAL RECORD: [id number] LOCATION:[facility] ADMISSION DATE: 05/03/20 PROGRESS NOTE DATE OF SERVICE: 06/05/2020 SUBJECTIVE: The patient's case was discussed with staff. He has no new complaint. OBJECTIVE: The patient is in good behavioral control, but severely impaired cognitively. ASSESSMENT: Vascular dementia. PLAN: Current medicines have been reviewed and will be maintained. He can be discharged as soon as placement is arranged. TRANSINT:[id number] Voice Confirmation ID: [id number] DOCUMENT ID: [id number] GEOFF BURNHAM MD at 1439 CC: [id number] DICTATION DATE: 06/05/20 1618 COREMAKER BENCH: 06/06/20 0050 ADM IN [place] [id number] [place] [address]
[2020-06-06 20:04] VITALS: BP 158/47
--- NOTE | 2020-06-06 22:51 | NUR ---
B.) PT IS ALERT AND ORIENTED TO SELF. HE IS CALM AND COOPERATIVE. PT IS VERY [place]. HE RELATES THAT HE HAD A VERY GOOD DAY TODAY. HE IS ABLE TO AMBULATE ON HIS OWN WITHOUT ASSISTIVE DEVICES. I.) PROVIDED PM MEDICATIONS PRESCRIBED. REDIRECT NEEDED R.) COMPLIANT WITH ALL MEDICATIONS. EASY TO REDIRECT. P.) WILL CONTINUE TO MONITOR.
[2020-06-07 09:22] VITALS: BP 133/45
--- NOTE | 2020-06-07 10:33 | PN ---
PATIENT:MICHAEL ARITA MEDICAL RECORD: [id number] LOCATION:V[facility] M[facility]arthy ADMISSION DATE: 05/03/20 PROGRESS NOTE DATE OF SERVICE: 06/06/2020 SUBJECTIVE: The patient's case was discussed with staff. He has no new complaint. OBJECTIVE: The patient is in good behavioral control with poor insight about his situation. He tolerates his medicines well. ASSESSMENT: Vascular dementia. PLAN: The patient can be discharged as soon as arrangements are made. There is a possibility of getting him to a [facility] about 90 minutes from here that is accepting patients. TRANSINT:[id number] Voice Confirmation ID: [id number] DOCUMENT ID: [id number] GEOFF BURNHAM MD at 1033 CC: [id number] DICTATION DATE: 06/06/20 1451 AUTOMAT WATCHER: 06/06/20 2208 ADM IN [facility] [address] [place] [id number]
--- NOTE | 2020-06-07 11:15 | NUR ---
The patient is pleasant and calm, he has poor insight into his situation. He does not understand why he is here. He is awake to eat and take his meds. He mostly sleeps. He ambulates independently. Provide prescribed meds. The patient is compliant with meds. He has not shown any aggression today. Provide prescribed meds. The patient is compliant with meds. Continue POC.
--- NOTE | 2020-06-07 18:19 | NUR ---
The patient asked about his numb fingers on his right hand. Explained to him he probably has neuropathy, diabetes affects many body parts. he said "I'm losing it, I'm losing it." Asked him "What are you saying, you feel crazy?" He said "No, nervous." Asked him if he would like an ativan and he said Yes. Ativan 0.5 mg po provided now. Will monitor.
[2020-06-07 20:10] VITALS: BP 149/47
--- NOTE | 2020-06-07 22:06 | NUR ---
B.) PT IS ALERT AND ORIENTED TO SELF ONLY. HE IS ABLE TO AMBULATE ON HIS OWN AND MAKE HIS NEEDS KNOWN. HE IS CALM AND COOPERATIVE WITH STAFF. HE IS OBSERVED LAYING HIS HEAD DOWN ON TABLE IN DAYROOM. I.) PROVIDED PM MEDICATIONS RPESCRIBED. REDIRECT NEEDED. R.) COMPLIANT WITH ALL MEDICATIONS. EASY TO REDIRECT. P.) WILL CONTINUE TO MONITOR.
[2020-06-08 08:27] VITALS: BP 157/56
--- NOTE | 2020-06-08 09:24 | NUR ---
The patient is calm and pleasant he is [place]. He speaks when spoken to. He just sleeps, he is tired of being here. He has not shown any aggression today. He ambulates independently. Provide prescribed meds. The patient is compliant with meds. Continue POC.
--- NOTE | 2020-06-08 11:28 | PN ---
PATIENT:MICHAEL ARITA MEDICAL RECORD: [id number] LOCATION:[facility] ADMISSION DATE: 05/03/20 PROGRESS NOTE DATE OF SERVICE: 06/07/2020 SUBJECTIVE: The patient's case was discussed with staff. He has no new complaint. OBJECTIVE: The patient is impaired cognitively, but not disruptive. ASSESSMENT: Vascular dementia. PLAN: As mentioned repeatedly, he can be discharged as soon as placement is arranged. TRANSINT:[id number] Voice Confirmation ID: [id number] DOCUMENT ID: [id number] GEOFF BURNHAM MD at 1128 CC: [id number] DICTATION DATE: 06/07/20 1536 ALLERGIST/MD: 06/08/20 0057 ADM IN [id number] [place] [address]
--- NOTE | 2020-06-08 19:06 | PN ---
PATIENT:MICHAEL ARITA MEDICAL RECORD: [id number] LOCATION:[facility] ADMISSION DATE: 05/03/20 PROGRESS NOTE DATE OF SERVICE: 06/08/2020 SUBJECTIVE: The patient's case was discussed with staff. He has no new complaint. OBJECTIVE: The patient's condition is unchanged. He is impaired, but not disruptive. ASSESSMENT: Vascular dementia. PLAN: The patient will be discharged as soon as placement can be arranged. TRANSINT:[id number] Voice Confirmation ID: [id number] DOCUMENT ID: [id number] GEOFF BURNHAM MD at 1906 CC: [id number] DICTATION DATE: 06/08/20 1231 LENS AND FRAMES PRESCRIPTION CLERK: 06/08/20 1246 ADM IN [id number] [place] [address]
[2020-06-08 20:00] VITALS: BP 136/42
--- NOTE | 2020-06-08 21:07 | NUR ---
B.) PT IS ALERT AND ORIENTED TO SELF ONLY. HE HAS POOR INSIGHT INTO HIS SITUATION. HE IS VERY HARD OF HEARING. HE IS CALM AND COOPERATIVE WITH STAFF. I.) PROVIDED PM MEDICATION PRESCRIBED. REDIRECT NEEDED. R.) COMPLIANT WITH ALL MEDICATIONS. EASY TO REDIRECT. P.) WILL CONTINUE TO MONITOR.
[2020-06-09 10:50] VITALS: BP 121/41
--- NOTE | 2020-06-09 11:26 | NUR ---
The patient is pleasant he stays awake for his meals and medication, but then he sleeps. He has poor insight into situation. He says he is tired of being here and he is ready to go. Some times he will sit with another male patient and they will pray or put a puzzle together. He has not made any SI, or HI statements, he is not aggressive at all. Provide prescribed meds. The patient is compliant with meds. He ambulates independently, he is unsteady at times, but refuses to use a walker or a w/c. He will use a hand rail in the marr. Continue POC.
[2020-06-09 20:37] VITALS: BP 132/84
[2020-06-10 09:21] VITALS: BP 122/60
--- NOTE | 2020-06-10 11:13 | NUR ---
PT IS ATTENDING GROUP AT THIS TIME. ASSESSMENT COMPLETED. AWAKE AND ALERT TO PERSON ONLY. NO BEHAVIORS NOTED AT THIS TIME. PRESCRIBED MEDS PROVIDED ORDERED. MED COMPLIANT. REDIRECT AND REORIENT NEEDED. FALL PRECAUTIONS IN PLACE. WILL CPOC.
[2020-06-10] MEDS ORDERED: MIRALAX17 GM PO (12:23)
[2020-06-10] MEDS ORDERED: LEXAPRO20 MG PO (12:23)
[2020-06-10] MEDS ORDERED: NAMENDA5 MG PO (12:23)
[2020-06-10] MEDS ORDERED: LISINOPRIL40 MG PO (12:23)
[2020-06-10] MEDS ORDERED: JARDIANCE25 MG PO (12:24)
[2020-06-10] MEDS ORDERED: GLIPIZIDE10 MG PO (12:24)
[2020-06-10] MEDS ORDERED: VITAMIN B-121000 MCG PO (12:25)
--- NOTE | 2020-06-10 16:30 | NUR ---
PT DISCHARGED TO [facility]IA TRANSPORT [facility]AN. NO S/SX OF DISTRESS NOTED. ALL DISCHARGE PAPERWORK FAXED AND COPY SENT TO WITH PT.
--- NOTE | 2020-06-11 08:21 | PN ---
PATIENT:MICHAEL ARITA MEDICAL RECORD: [id number] LOCATION:[facility] ADMISSION DATE: 05/03/20 PROGRESS NOTE DATE OF SERVICE: 06/10/2020 SUBJECTIVE: The patient's case was discussed with staff. He has no new complaint. OBJECTIVE: The patient denies intent to harm himself or others. He is tolerating his medicines well. He is impaired cognitively. ASSESSMENT: Vascular dementia. PLAN: The patient will be transitioned out of the hospital today. A [facility] has accepted him, and he should be transferred at any time. Followup will be with his primary care [facility] physician. He has no evidence of direct or acute dangerousness to himself or others. TRANSINT:[id number] Voice Confirmation ID: [id number] DOCUMENT ID: [id number] GEOFF BURNHAM MD at 0821 CC: [id number] DICTATION DATE: 06/10/20 1633 INTERFACE ENGINEER: 06/10/20 2316 DIS IN 06/10/20 [id number] [place] [address]
== END 2020-06-10 16:30 | DRG 884 ==
LOC: D.PSYCH 15:30
PROVIDERS: Family Medicine; ADMIT Psychiatry & Neurology Psychiatry; ATTEND Psychiatry & Neurology Psychiatry
DX: F01.51 Vascular dementia, unspecified severity, with behavioral disturbance (principal); M86.9 Osteomyelitis, unspecified; I25.10 Atherosclerotic heart disease of native coronary artery without angina pectoris; I10 Essential (primary) hypertension; E78.5 Hyperlipidemia, unspecified; I65.29 Occlusion and stenosis of unspecified carotid artery; N40.0 Benign prostatic hyperplasia without lower urinary tract symptoms; E11.9 Type 2 diabetes mellitus without complications; F32.9 Major depressive disorder, single episode, unspecified; E53.8 Deficiency of other specified B group vitamins; R35.0 Frequency of micturition; R00.1 Bradycardia, unspecified; R53.1 Weakness; M79.641 Pain in right hand